=== PATIENT | male | born 1990 | race Caucasian/White ===

== ENCOUNTER 2017-09-14 11:04 | Emergency (ER) | payer SELFPAY ==
[2017-09-14 11:11] VITALS: BP 121/78; PULSE 79; TEMP 98.3; BMI 31.1
--- NOTE | 2017-09-14 12:35 | PDOC ---
History of Present Illness - General Chief Complaint: Pain Stated Complaint: TESTICLE PAIN Time Seen by Provider: 09/14/17 12:06 History Source: Patient Exam Limitations: No Limitations - History of Present Illness Initial Comments: 09/14/17 12:32 My chief complaint: Pain in both testicles since yesterday History of present illness: Patient is a 27-year-old male with no significant medical history here today complaining of bilateral testicular pain slightly worse on left side since yesterday. Patient reports the pain is a 5 out of 10 and is worse with movement. Patient denies any abdominal pain or back pain. Patient denies any hematuria, urgency, frequency, or hesitancy. Any fever or chills. Patient denies being sexually active for the last 4 months. Patient denies any penile discharge or any lesions on penis. Patient reports that he has been masturbating often. Patient denies ever having testicular pain in the past. Timing/Duration: intermittent (worse with movement ) Severity: moderate Associated Symptoms: reports: denies symptoms Past History - Past Medical History Allergies/Adverse Reactions: Allergies Allergy/AdvReac Type Severity Reaction Status Date / Time No Known Allergies Allergy Verified 09/14/17 11:08 Home Medications: Ambulatory Orders NK [No Known Home Medication] 09/14/17 - Suicide/Smoking/Psychosocial Hx Smoking History: Never smoked Have you smoked in the past 12 months: Yes Number of Cigarettes Smoked Daily: 0 Hx Alcohol Use: No Drug/Substance Use Hx: No Substance Use Type: None Review of Systems - Review of Systems Able to Perform ROS?: Yes Constitutional: No: Symptoms Reported HEENTM: No: Symptoms Reported Respiratory: No: Symptoms reported Cardiac (ROS): No: Symptoms Reported ABD/GI: No: Symptoms Reported : Yes: Testicular Pain (b/l worse on left ). No: Dysuria, Discharge, Frequency, Flank Pain, Hematuria, Incontinence, Urgency, Testicular Mass, Testicular Swelling, Lesions Musculoskeletal: No: Symptoms Reported Integumentary: No: Symptoms Reported Neurological: No: Symptoms reported *Physical Exam - Vital Signs Last Vital Signs Temp Pulse Resp BP Pulse Ox 98.3 F 79 19 121/78 99 09/14/17 11:08 09/14/17 11:08 09/14/17 11:08 09/14/17 11:08 09/14/17 11:08 - Physical Exam General Appearance: Yes: Appropriately Dressed Respiratory/Chest: positive: Lungs Clear, Normal Breath Sounds. negative: Chest Tender, Respiratory Distress Cardiovascular: positive: Regular Rhythm, Regular Rate, S1, S2 Gastrointestinal/Abdominal: positive: Normal Bowel Sounds, Soft. negative: Tender, Organomegaly, Distended, Guarding, Rebound, Tenderness, Hepatomegaly, Spleenomegaly Male Genitalia: positive: normal genitalia (circumcised ), other (+ cremasteric reflex b/l ). negative: discharge, testicular tenderness, testicular mass, epididymus tender, inguinal hernia, hernia Integumentary: positive: Normal Color Neurologic: positive: Alert, Normal Response, Responsive ED Treatment Course - RADIOLOGY Radiology Studies Ordered: Category Date Time Status SCROTUM AND CONTENTS US [US] Stat Ultrasound 09/14/17 12:26 Ordered Medical Decision Making - Medical Decision Making 09/14/17 12:34 Patient is a 27-year-old male with no significant medical history here today complaining of bilateral testicular pain slightly worse on left side since yesterday. Patient reports the pain is a 5 out of 10 and is worse with movement. Patient denies any abdominal pain or back pain. Patient denies any hematuria, urgency, frequency, or hesitancy. Any fever or chills. Patient denies being sexually active for the last 4 months. Patient denies any penile discharge or any lesions on penis. Patient reports that he has been masturbating often. Patient denies ever having testicular pain in the past. R/O testicular torsion R/O epididymitis R/O STD's PLAN: urinalysis urine C & S chlamydia/G C amplification RPR Ultrasound of scrotum and contents no Doppler evidence of testicular torsion. Apparent incidental note is made of a small right epididymal head cyst. The remainder of the study appears unremarkable per Dr. Shelley. 09/14/17 14:15 09/14/17 14:15 Laboratory Tests 09/14/17 13:30 Urine Color Yellow Urine Appearance Clear Urine pH 6.0 Urine Protein Negative Urine Glucose (UA) Negative Urine Ketones Negative Urine Blood Negative Urine Nitrite Negative Urine Bilirubin Negative Urine Urobilinogen Negative 09/14/17 14:16 Follow up with urologist pt. instructed to refrain from masturbation until seen by urologist 09/14/17 14:23 09/14/17 14:24 09/14/17 22:51 *DC/Admit/Observation/Transfer Diagnosis at time of Disposition: Testicular/scrotal pain - Discharge Dispostion Disposition: HOME Condition at time of disposition: Stable - Referrals Referrals: Jf Love MD [Staff Physician] - - Patient Instructions Additional Instructions: Refrain from masturbation until cleared by urologist to resume Follow up with urologist within the next couple of days Return to emergency room if any difficulty urinating or worsening testicular pain or any other new symptoms develop or fever Patient voiced understanding of discharge instructions and all questions were answered
[2017-09-14 13:55] LABS: URINE APPEARANCE CLEAR; URINE BILIRUBIN NEGATIVE (NEGATIVE); URINE BLOOD NEGATIVE (NEGATIVE); URINE COLOR YELLOW; URINE GLUCOSE (UA) NEGATIVE (NEGATIVE); URINE KETONE NEGATIVE (NEGATIVE); URINE NITRITE NEGATIVE (NEGATIVE); URINE PROTEIN NEGATIVE (NEGATIVE); URINE UROBILINOGEN NEGATIVE mg/dL (0.2-1.0)
[2017-09-14 17:49] LABS: URINE LEUK ESTERASE Negative (NEGATIVE)
== END 2017-09-14 14:25 | disposition home or self-care (01) ==
LOC: JERFT 11:04
DX: N50.812 Left testicular pain (principal); N50.811 Right testicular pain; N50.3 Cyst of epididymis
CPT/HCPCS: 36415; 76870-TC; 81003; 86593; 87086; 87491; 87591; 99281-25

== ENCOUNTER 2019-04-09 14:47 | Emergency (ER) | payer OTHER | END 2019-04-09 15:40 | disposition home or self-care (01) | LOC: JERFT 14:47 ==

== ENCOUNTER 2024-09-16 16:04 | Emergency (ER) | payer OTHER ==
[2024-09-16 16:17] VITALS: BP 140/93; PULSE 67; RESP 19; TEMP 98.8; BMI 29.8
[2024-09-16] MEDS ORDERED: ACETAMINOPHEN 500 MG TABLET (FP) ONE (17:35)
[2024-09-16] MEDS ORDERED: KETOROLAC TROMETHAMINE 30 MG/1 ML VIAL ONE (17:35)
[2024-09-16] MEDS: KETOROLAC TROMETHAMINE 30 MG/1 ML VIAL IM ONE (17:48)
[2024-09-16] MEDS: ACETAMINOPHEN 500 MG TABLET (FP) PO ONE (17:49)
[2024-09-16 18:02] LABS: BASO % 0.5 % (0-2.0); EOS % 1.3 % (0-4.5); HEMATOCRIT 55.3 % (35.4-49); HEMOGLOBIN 19.3 GM/dL (11.7-16.9); LYMPH % 21.6 % (8-40); MCH 32.6 pg (25.7-33.7); MCHC 34.8 g/dl (32.0-35.9); MEAN CELL VOLUME 93.6 fl (80-96); MEAN PLT VOLUME 8.7 fl (7.5-11.1); NEUT % 68.6 % (42.8-82.8); PLATELET COUNT 216 10^3/uL (134-434); RBC 5.92 M/mm3 (4.00-5.60); RDW 13.3 % (11.9-15.9); WHITE BLOOD COUNT 13.5 K/mm3 (4.0-10.0)
[2024-09-16 18:04] LABS: EPI CELLS 2 /uL (0-25.1); HYALINE CASTS 0 /uL (0-3.1); PH,URINE 6.5 (5.0-8.0); URINE APPEARANCE CLEAR; URINE BACTERIA 11 /uL (0-1359); URINE BILIRUBIN NEGATIVE (NEGATIVE); URINE COLOR YELLOW; URINE GLUCOSE (UA) NEGATIVE (NEGATIVE); URINE KETONE NEGATIVE (NEGATIVE); URINE LEUK ESTERASE NEGATIVE (NEGATIVE); URINE NITRITE NEGATIVE (NEGATIVE); URINE PROTEIN NEGATIVE (NEGATIVE); URINE RBC 58 /uL (0-23.9); URINE WBC 5 /uL (0-25.8)
[2024-09-16 18:30] LABS: ALBUMIN 3.7 g/dl (3.4-5.0); CALCIUM 9.2 mg/dL (8.5-10.1)
[2024-09-16 18:31] LABS: BLOOD UREA NITROGEN 13.5 mg/dL (7-18)
[2024-09-16 18:33] LABS: CREATININE 0.9 mg/dL (0.55-1.3)
[2024-09-16 18:35] LABS: BILIRUBIN,TOTAL 0.4 mg/dL (0.2-1); TOT PROT 7.2 g/dl (6.4-8.2)
[2024-09-16 19:24] LABS: HIV INTERPRETATION NEGATIVE (NEGATIVE)
== END 2024-09-16 20:30 | disposition home or self-care (01) ==
LOC: JER 16:04
PROC: 3E0133Z Introduction of Anti-inflammatory into Subcutaneous Tissue, Percutaneous Approach (ICD-10-PCS; principal; 2024-09-16)
DX: K59.00 Constipation, unspecified (principal); M54.50 Low back pain, unspecified
CPT/HCPCS: 36415; 74019-TC-FY; 80053; 81003; 83690; 85025; 86803; 87086; 87389; 96372; 99284-25